=== PATIENT | male | born 2005 | race Caucasian/White ===

== ENCOUNTER 2025-01-01 20:02 | Emergency (ER) | payer OTHER ==
[~2025-01-01] VITALS: Ht 182.9 cm; Wt 81.6 kg
[2025-01-01 20:24] VITALS: BP 147/86; TEMP 98.1
[2025-01-01 21:01] LABS: APPEARANCE,URINE SLIGHTLY CLOUDY (CLEAR); BLOOD, URINE NEGATIVE Ery/uL (NEGATIVE); LEUKOCYTE ESTERASE ,URINE NEGATIVE (NEGATIVE); NITRITE, URINE NEGATIVE (NEGATIVE); UGLUCOSE NEGATIVE (NEGATIVE)
[2025-01-01 21:11] LABS: ADD URINE CULTURE NO; SQUAMOUS EPITHELIAL CELL,UR Few /HPF (None Seen)
[2025-01-01] MEDS ORDERED: CEPH-570 PO (22:28)
[2025-01-01] MEDS ORDERED: IBUP-1957 PO (22:28)
[2025-01-01 23:07] VITALS: O2SAT 98
[2025-01-03 12:07] LABS: CHLAMYDIA TRACHOMATIS NAA Negative (Negative); NEISSERIA GONORRHOEAE NAA Negative (Negative)
== END 2025-01-01 23:08 | disposition home or self-care (01) ==
LOC: ER 20:13
DX: N50.811 Right testicular pain (principal); N50.812 Left testicular pain
CPT/HCPCS: 76870-TC; 81001; 87491; 87591